=== PATIENT | male | born 1965 | race African-American/Black ===

== ENCOUNTER 2019-04-11 09:10 | Emergency (ER) | payer SELFPAY ==
--- NOTE | 2019-04-11 10:05 | RADIOLOGY REPORT (SQ) ---
EXAM DESCRIPTION: WRIST RIGHT 3 VIEWS COMPLETED DATE/TIME: 04/11/2019 9:45 am REASON FOR STUDY: right wrist pain COMPARISON: None. NUMBER OF VIEWS: Three views. TECHNIQUE: AP, lateral, and oblique radiographic images acquired of the right wrist. LIMITATIONS: None. FINDINGS: MINERALIZATION: Normal. BONES: There is a subacute to chronic nondisplaced fracture of the ulnar styloid process with adjacen t soft tissue swelling. The carpal alignment is preserved. SOFT TISSUES: As above. OTHER: No other finding. IMPRESSION: Subacute to chronic nondisplaced fracture of the ulnar styloid process with adjacent sof t tissue swelling. TECHNICAL DOCUMENTATION: JOB ID: [id number] [employer]- All Rights Reserved Reading location - IP/workstation name: [email or web address]
--- NOTE | 2019-04-11 11:00 | ER Document Report ---
HPI - HPI Time Seen by Provider: 04/11/19 10:42 Pain Level: 3 Context: Patient is a 54-year-old male who presents to the emergency department with a chief complaint of right wrist pain. Patient reports he has had right lateral wrist pain for over the past few weeks. Patient denies injury or known trauma. Patient reports the only thing he can think is over the past few weeks he has been lifting weights. Patient reports he already has limited extension of the right hand at the wrist joint due to a previous radial surgery. Patient reports he has tenderness to the right lateral wrist. Past Medical History - General Information source: Patient - Social History Smoking Status: Never Smoker Chew tobacco use (# tins/day): No Frequency of alcohol use: None Drug Abuse: None Lives with: Family Family History: None Patient has suicidal ideation: No Patient has homicidal ideation: No - Past Medical History Cardiac Medical History: Reports: None Pulmonary Medical History: Reports: None EENT Medical History: Reports: None Neurological Medical History: Reports: None Endocrine Medical History: Reports: None Renal/ Medical History: Reports: None Malignancy Medical History: Reports None GI Medical History: Reports: None Musculoskeletal Medical History: Reports None Skin Medical History: Reports None Psychiatric Medical History: Reports: None Traumatic Medical History: Reports: None Infectious Medical History: Reports: None Vertical Provider Document - CONSTITUTIONAL Agree With Documented VS: Yes Exam Limitations: No Limitations General Appearance: No Apparent Distress - HEENT HEENT: Atraumatic, Normal ENT Exam, Normocephalic, PERRLA - NECK Neck: Normal Inspection - RESPIRATORY Respiratory: Breath Sounds Normal, No Respiratory Distress - CARDIOVASCULAR Cardiovascular: Regular Rate, Regular Rhythm - GI/ABDOMEN Gastrointestinal: Abdomen Soft, Abdomen Non-Tender - MUSCULOSKELETAL/EXTREMETIES Notes: Patient does have point tenderness to the right styloid process. If there is no significant edema or erythema. Patient has good flexion of the right hand at the wrist joint but limited flexion due to a past previous surgery. Patient has strong bilateral banana grader equally. Patient has a strong right radial pulse. Patient has less than 2-second cap refill on all digits of the right hand. - NEURO Level of Consciousness: Awake, Alert, Appropriate - DERM Integumentary: Warm, Dry, No Rash Course - Re-evaluation Re-evalutation: 04/11/19 11:01 Patient does have a subacute to chronic right ulnar styloid process fracture that is nondisplaced. I did inform the patient that although this is not acute I did recommend he follow-up with orthopedics. Will place patient in an ulnar gutter splint. Patient to keep this elevated and take Tylenol and ibuprofen as needed for pain. I will give the patient multiple orthopedic referrals in the area. Patient to return for any new or worsening symptoms. - Vital Signs Vital signs: Temp Pulse Resp BP Pulse Ox 97.9 F 58 L 16 144/86 H 97 04/11/19 09:20 04/11/19 09:20 04/11/19 09:20 04/11/19 09:20 04/11/19 09:20 - Diagnostic Test Radiology reviewed: Reports reviewed Radiology results interpreted by me: 04/11/19 11:01 Wrist X-Ray 04/11/19 00:00 IMPRESSION: Subacute to chronic nondisplaced fracture of the ulnar styloid process with adjacent soft tissue swelling. Procedures - Immobilization Right Wrist Immobilizer type: Ulnar - Ulnar gutter Performed by: PCT Post-Proc Neuro Vasc Exam: Normal, Unchanged from pre-exam Alignment checked and good: Yes Notes: 04/11/19 11:20 Strict splint precautions discussed with patient. Discharge - Discharge Clinical Impression: Wrist pain, right Fracture of styloid process of ulna Qualifiers: Encounter type: initial encounter Fracture type: closed Fracture alignment: nondisplaced Laterality: right Qualified Code(s): S52.614A - Nondisplaced fracture of right ulna styloid process, initial encounter for closed fracture Condition: Stable Disposition: HOME, SELF-CARE Additional Instructions: Today you are seen in the emergency department for right wrist pain. Your x-ray did show a nondisplaced right ulna styloid process fracture, this is consistent to where you are having the pain. The x-ray did note that this was subacute to chronic in nature. Subacute is usually greater than 2 weeks. It is unsure when you did injure your wrist as there was no reported fall or injury. We have placed you in a temporary splint. Please follow-up with orthopedics. Please keep the splint clean dry and intact until you follow-up with orthopedics. Splint Precautions A splint has been placed. This will protect the area while healing begins. Your problem does NOT normally require a cast. It MUST, however, be held still! Keep the splint on ALL THE TIME until instructed to remove it by the doctor. As you begin to use the area, be careful. You shouldn't do anything which causes discomfort -- you may disturb the injury even with the splint in place. After the initial period of rest and elevation, if splint does not prevent pain when you move, come back. You may require placement of a different splint, or a cast. If there is unexpected severe pain, or numbness, discoloration, or swelling beyond the splint, you should return at once. If you feel that the splint has broken or become loose, come back. Referrals: JESENIA NOVA DO [ACTIVE STAFF] - Follow up as needed TANVIR SELF MD [ACTIVE STAFF] - Follow up as needed JINNY HAHN JR, DO [ACTIVE PROVISIONAL STAFF] - Follow up as needed ANABELLA MOSES MD [ACTIVE PROVISIONAL STAFF] - Follow up as needed
[2019-04-11 11:27] VITALS: BP 156/97
== END 2019-04-11 11:20 | disposition home or self-care (01) ==
LOC: ER 09:10
DX: S52.614A Nondisplaced fracture of right ulna styloid process, initial encounter for closed fracture (principal); M25.531 Pain in right wrist; X58.XXXA Exposure to other specified factors, initial encounter